=== PATIENT | female | born 1945 | race Caucasian/White ===

== ENCOUNTER 2019-10-29 18:24 | Inpatient (IN) ==
[2019-10-29 20:50] LABS: Basophils % 0.2 % (0.0-0.8); Eosinophils % 0.1 % (0.00-10.9); Hematocrit 42.4 VOL% (35.7-47.0); Hemoglobin 13.4 GM/DL (12.0-16.0); Immature Granulocytes % 0.5 %; Immature Granulocytes Absolute 0.06 #; Lymphocytes # 1.1 10*3/uL (1.4-4.0); Lymphocytes % 8.3 % (21.3-54.2); Mean Corpuscular HGB Conc 31.6 GM/DL (32-36); Mean Platelet Volume 9.7 FL (9.6-12.0); Monocytes % 4.4 % (1.7-12.7); Neutrophils % 86.5 % (38.7-73.9); Platelet Count 227 T/CUMM (130-400); Red Blood Count 4.82 MC/CUMM (3.8-5.5); Red Cell Distribution Width 13.2 % (9.3-17.3); White Blood Count 12.6 T/CUMM (4-12)
[2019-10-29 21:04] LABS: Calcium 9.4 MG/DL (8.5-10.1); Osmolality,Calculated 279.5 MOS/KG (273-304); PT Patient Result 10.8 SECS (9.8-11.9); Partial Thromboplastin Time 32.6 SECS (23.9-33.8)
[2019-10-29] MEDS ORDERED: MORPHINE 4 MG/1 ML VIAL IV PRN (21:29)
[2019-10-29] MEDS: NITROGLYCERIN SL 0.4 MG TABLET SL PRN ×3 (23:02→23:12)
[2019-10-29] MEDS: ONDANSETRON 4 MG/2 ML VIAL IV PRN (23:03)
[2019-10-29] MEDS ORDERED: DEXTROSE 50% 25 GM/50 ML VIAL IV PRN (23:28)
[2019-10-29] MEDS ORDERED: ACETAMINOPHEN 325 MG TABLET PO PRN (23:28)
[2019-10-29] MEDS ORDERED: NICOTINE 21 MG/24 HR PATCH TRANSDERM PRN (23:28)
[2019-10-29] MEDS ORDERED: GLUCAGON 1 MG VIAL IM PRN (23:28)
[2019-10-29] MEDS ORDERED: guaiFENesin/DM ER 600-30 MG TABLET PO PRN (23:28)
[2019-10-29] MEDS ORDERED: hydrALAZINE 20 MG/1 ML VIAL IV PRN (23:28)
[2019-10-29] MEDS ORDERED: DOCUSATE SODIUM 100 MG CAPSULE PO PRN (23:28)
[2019-10-29] MEDS ORDERED: ALBUTEROL 2.5 MG/3 ML NEB RESP TX PRN (23:28)
[2019-10-29] MEDS ORDERED: LEVOFLOXACIN INJ 750 MG in PREMIX 1 EACH IV SCH (23:30)
[2019-10-29] MEDS ORDERED: ASPIRIN CHEW 81 MG TABLET PO ONE (23:49)
[2019-10-29] MEDS ORDERED: POTASSIUM CHLORIDE 20 MEQ TABLET PO ONE (23:50)
[2019-10-29] MEDS ORDERED: NITROGLYCERIN DRIP 50 MG/250 ML BOTTLE IV PRN (23:50)
[2019-10-30] MEDS ORDERED: CLOPIDOGREL 300 MG TABLET PO ONE (00:09)
[2019-10-30] MEDS: ENOXAPARIN 100 MG/ML SYRINGE SUBCUT SCH ×3 (00:30→23:45)
[2019-10-30] MEDS: carvediloL 6.25 MG TABLET PO SCH ×4 (00:30→17:17)
[2019-10-30] MEDS: ATORVASTATIN 40 MG TABLET PO SCH ×2 (02:01→20:12)
[2019-10-30] MEDS: MORPHINE 4 MG/1 ML VIAL IV PRN ×3 (03:20→20:18)
[2019-10-30] MEDS: ONDANSETRON 4 MG/2 ML VIAL IV PRN (04:00)
[2019-10-30 04:37] LABS: Basophils % 0.2 % (0.0-0.8); Hematocrit 40.9 VOL% (35.7-47.0); Hemoglobin 13.2 GM/DL (12.0-16.0); Immature Granulocytes % 0.6 %; Immature Granulocytes Absolute 0.08 #; Lymphocytes # 1.1 10*3/uL (1.4-4.0); Lymphocytes % 7.7 % (21.3-54.2); Mean Corpuscular HGB Conc 32.3 GM/DL (32-36); Mean Corpuscular Volume 85.7 FL (87-102); Mean Platelet Volume 10.5 FL (9.6-12.0); Monocytes % 5.2 % (1.7-12.7); Neutrophils % 86.3 % (38.7-73.9); Platelet Count 239 T/CUMM (130-400); Red Blood Count 4.77 MC/CUMM (3.8-5.5); White Blood Count 14.5 T/CUMM (4-12)
[2019-10-30 04:47] LABS: Calcium 9.3 MG/DL (8.5-10.1); Osmolality,Calculated 276.7 MOS/KG (273-304); Risk Ratio 4.22; VLDL CHOLESTEROL 21.8 MG/DL
[2019-10-30 05:47] LABS: CKMB % 14.2 %
[2019-10-30] MEDS: INSULIN LISPRO 100 UNIT/ML SUBCUT SCH ×4 (07:40→22:15)
[2019-10-30] MEDS ORDERED: AZITHROMYCIN INJ 500 MG in SODIUM CHLORIDE 0.9% 250 ML IV ONE (08:44)
[2019-10-30] MEDS ORDERED: AZITHROMYCIN 250 MG TABLET PO ONE (09:00)
[2019-10-30] MEDS ORDERED: ASPIRIN CHEW 81 MG TABLET PO SCH (09:00)
[2019-10-30] MEDS ORDERED: amLODIPine 5 MG TABLET PO SCH (09:00)
[2019-10-30] MEDS ORDERED: ASPIRIN EC 325 MG TABLET PO SCH (09:00)
[2019-10-30] MEDS: PANTOPRAZOLE 40 MG TABLET PO SCH (09:11)
[2019-10-30] MEDS: FUROSEMIDE 20 MG TABLET PO SCH (09:11)
[2019-10-30] MEDS: cefTRIAXone 1,000 MG in SYRINGE 1 EACH IV SCH (10:50)
[2019-10-30] MEDS: HYDROXYCHLOROQUINE 200 MG TABLET PO SCH ×2 (10:51→20:12)
[2019-10-30] MEDS: SERTRALINE 25 MG TABLET PO SCH (20:12)
[2019-10-30] MEDS: NITROGLYCERIN 2% OINT 1 INCH/GM PACK TOP SCH (22:16)
[2019-10-31] MEDS ORDERED: DOBUTamine 500 MG/250 ML PREMIX IV ONE (00:31)
[2019-10-31] MEDS ORDERED: DOBUTamine 500 MG/250 ML PREMIX IV PRN ×2 (00:32→03:02)
[2019-10-31] MEDS ORDERED: methylPREDNISolone SOD SUC 40 MG/1 ML VIAL IV ONE ×2 (00:32→01:30)
[2019-10-31] MEDS ORDERED: SODIUM CHLORIDE 0.9% 500 ML IV ONE ×2 (00:33→09:49)
[2019-10-31 00:38] LABS: ABG Base Excess -1.4 MMOL/L (-2.5-2.5); ABG HCO3 23.2 MMOL/L (20-26); ABG PH 7.358 (7.35-7.45); ABG PO2 80.4 MM HG (80-95); ABG TCO2 21.6 MMOL/L (23-27); Allen Test Positive
[2019-10-31] MEDS ORDERED: PHENYLEPHRINE DRIP 40 MG/250 ML PREMIX IV PRN (00:39)
[2019-10-31] MEDS ORDERED: TICAGRELOR 90 MG TABLET PO ONE (01:00)
[2019-10-31] MEDS: MORPHINE 4 MG/1 ML VIAL IV PRN ×4 (01:00→22:20)
[2019-10-31] MEDS ORDERED: SODIUM CHLORIDE 0.9% 1,000 ML IV SCH ×2 (01:00→10:00)
[2019-10-31] MEDS ORDERED: methylPREDNISolone SOD SUC 125 MG/2 ML VIAL ONE (01:13)
[2019-10-31] MEDS: NITROGLYCERIN SL 0.4 MG TABLET SL PRN (01:25)
[2019-10-31] MEDS: ASPIRIN CHEW 81 MG TABLET PO SCH ×2 (01:52→08:29)
[2019-10-31] MEDS: carvediloL 6.25 MG TABLET PO SCH ×3 (01:56→06:18)
[2019-10-31] MEDS: NITROGLYCERIN 2% OINT 1 INCH/GM PACK TOP SCH ×4 (03:01→21:25)
[2019-10-31 05:47] LABS: Basophils % 0.1 % (0.0-0.8); Hematocrit 34.8 VOL% (35.7-47.0); Hemoglobin 11.4 GM/DL (12.0-16.0); Immature Granulocytes % 0.6 %; Immature Granulocytes Absolute 0.09 #; Lymphocytes # 0.6 10*3/uL (1.4-4.0); Lymphocytes % 4.2 % (21.3-54.2); Mean Corpuscular HGB Conc 32.8 GM/DL (32-36); Mean Corpuscular Volume 84.9 FL (87-102); Mean Platelet Volume 10.8 FL (9.6-12.0); Monocytes % 4.8 % (1.7-12.7); Neutrophils % 90.3 % (38.7-73.9); Platelet Count 203 T/CUMM (130-400); Red Cell Distribution Width 13.3 % (9.3-17.3); White Blood Count 14.3 T/CUMM (4-12)
[2019-10-31 05:49] LABS: ABG Base Excess -4.4 MMOL/L (-2.5-2.5); ABG HCO3 20.8 MMOL/L (20-26); ABG PCO2 40.9 MM HG (35-48); ABG PH 7.326 (7.35-7.45); ABG PO2 80.8 MM HG (80-95); ABG TCO2 19.3 MMOL/L (23-27)
[2019-10-31 06:15] LABS: Apearance,Urine CLOUDY (Clear); Bacteria,Urine Occasional /HPF (Few); Bilirubin,Urine Negative (Negative); Blood, Urine Moderate mg/dL (Negative); Glucose,Urine (UA) Negative (Negative); Ketones,Urine Negative (Negative); Mucus,Urine Occasional /LPF (Occasional); Nitrite,Urine Negative (Negative); Protein,Urine 100 MG/DL; RBC,Urine 152 /HPF (0-4); Squamous Epithelial Cell,Urine Occasional /HPF (0-10); Urine Color Amber (Yellow); Urine Specific Gravity 1.023 (1.001-1.035); Urine Urobilinogen < 2.0 EU/DL (0.2-1.0); WBC,Urine 6 /HPF (0-6)
[2019-10-31 06:23] LABS: Calcium 9.1 MG/DL (8.5-10.1); Osmolality,Calculated 268.8 MOS/KG (273-304)
[2019-10-31 06:26] LABS: Troponin I 56.1 NG/ML (0.00-0.045)
[2019-10-31 06:45] LABS: Lymphocytes 5 % (20-55); Segmented Neutrophils 87 % (50-85); Total Cells Counted 100
[2019-10-31 06:47] LABS: Hypochromasia Slight; Platelet Estimate Normal; Polychromasia Few
[2019-10-31] MEDS: INSULIN LISPRO 100 UNIT/ML SUBCUT SCH ×4 (08:27→21:21)
[2019-10-31] MEDS: TICAGRELOR 90 MG TABLET PO SCH ×2 (08:29→21:20)
[2019-10-31] MEDS: FUROSEMIDE 20 MG TABLET PO SCH (08:29)
[2019-10-31] MEDS: HYDROXYCHLOROQUINE 200 MG TABLET PO SCH ×2 (08:30→21:20)
[2019-10-31] MEDS: PANTOPRAZOLE 40 MG TABLET PO SCH (08:30)
[2019-10-31] MEDS ORDERED: AZITHROMYCIN 250 MG TABLET PO SCH (09:00)
[2019-10-31] MEDS ORDERED: AZITHROMYCIN INJ 250 MG in SODIUM CHLORIDE 0.9% 250 ML IV SCH (09:00)
[2019-10-31] MEDS: cefTRIAXone 1,000 MG in SYRINGE 1 EACH IV SCH (09:33)
[2019-10-31] MEDS ORDERED: SODIUM CHLORIDE 0.9% 500 ML IV SCH (10:00)
[2019-10-31] MEDS: ENOXAPARIN 100 MG/ML SYRINGE SUBCUT SCH (11:54)
[2019-10-31] MEDS ORDERED: SODIUM CHLORIDE 0.9% 250 ML IV ONE (19:52)
[2019-10-31] MEDS: SERTRALINE 25 MG TABLET PO SCH (21:20)
[2019-10-31] MEDS: ATORVASTATIN 40 MG TABLET PO SCH (21:20)
[2019-11-01] MEDS ORDERED: ETOMIDATE 20 MG/10 ML VIAL IV ONE (00:27)
[2019-11-01] MEDS ORDERED: VECURONIUM 10 MG VIAL IV ONE (00:27)
[2019-11-01] MEDS ORDERED: AMIODARONE 150 MG/3 ML VIAL ONE (01:06)
[2019-11-01] MEDS ORDERED: AMIODARONE 450 MG/9 ML VIAL IV ONE (01:06)
[2019-11-01] MEDS ORDERED: ATROPINE 1 MG/10 ML SYRINGE ONE (01:06)
[2019-11-01] MEDS ORDERED: SODIUM BICARBONATE 50 MEQ/50 ML SYRINGE IV ONE (01:11)
[2019-11-01] MEDS ORDERED: EPINEPHrine 1 MG/10 ML SYRINGE ONE ×2 (01:11→02:58)
[2019-11-01] MEDS ORDERED: AMIODARONE INJ 150 MG in DEXTROSE 5% 100 ML IV ONE (01:32)
[2019-11-01] MEDS ORDERED: AMIODARONE INJ 450 MG in DEXTROSE 5% 241 ML IV SCH (01:32)
[2019-11-01 01:36] VITALS: BP 80/47
[2019-11-01 02:06] LABS: Basophils % 0.2 % (0.0-0.8); Hematocrit 36.4 VOL% (35.7-47.0); Hemoglobin 11.1 GM/DL (12.0-16.0); Immature Granulocytes % 4.1 %; Immature Granulocytes Absolute 0.83 #; Lymphocytes # 2.6 10*3/uL (1.4-4.0); Lymphocytes % 12.5 % (21.3-54.2); Mean Corpuscular HGB Conc 30.5 GM/DL (32-36); Mean Corpuscular Volume 91.9 FL (87-102); Mean Platelet Volume 10.4 FL (9.6-12.0); Monocytes % 7.6 % (1.7-12.7); NRBC # 0.05 10*3/uL; Neutrophils % 75.6 % (38.7-73.9); Platelet Count 234 T/CUMM (130-400); Red Blood Count 3.96 MC/CUMM (3.8-5.5); Red Cell Distribution Width 13.5 % (9.3-17.3); White Blood Count 20.5 T/CUMM (4-12)
[2019-11-01 02:18] LABS: INR 1.7; PT Patient Result 17.5 SECS (9.8-11.9); Partial Thromboplastin Time 40.6 SECS (23.9-33.8)
[2019-11-01 02:32] LABS: ABG Base Excess -20.2 MMOL/L (-2.5-2.5); ABG Oxygen Saturation 97.6 % (95-100); ABG PCO2 31.9 MM HG (35-48); ABG TCO2 8.8 MMOL/L (23-27)
[2019-11-01 02:33] LABS: ABG PH 7.077 (7.35-7.45)
[2019-11-01] MEDS ORDERED: SODIUM BICARBONATE 50 MEQ/50 ML VIAL IV ONE ×2 (02:34→02:50)
[2019-11-01] MEDS ORDERED: LIDOCAINE 1% 20 ML VIAL ONE (02:47)
[2019-11-01] MEDS ORDERED: HEPARIN/NACL 0.9% 2 UNITS/ML 1,500 ML IV ONE (02:47)
[2019-11-01] MEDS ORDERED: ATROPINE 1 MG/10 ML SYRINGE IV ONE ×2 (02:55→02:56)
[2019-11-01] MEDS ORDERED: CALCIUM CHLORIDE 1,000 MG/10 ML SYRINGE IV ONE (02:58)
[2019-11-01 03:07] LABS: Albumin 2.6 G/DL (3.4-5.0); Bilirubin,Total 4.69 MG/DL (0.2-1.0); Calcium 7.8 MG/DL (8.5-10.1); Total Protein 4.9 G/DL (6.4-8.3)
[2019-11-01 03:16] LABS: Lymphocytes 11 % (20-55); Segmented Neutrophils 84 % (50-85); Total Cells Counted 100
[2019-11-01 03:17] LABS: Platelet Estimate Normal; Polychromasia Few
[2019-11-01] MEDS: NITROGLYCERIN 2% OINT 1 INCH/GM PACK TOP SCH (06:04)
[2019-11-01] MEDS ORDERED: ENOXAPARIN 100 MG/ML SYRINGE SUBCUT SCH (12:00)
== END 2019-11-01 04:15 | disposition expired | DRG 250 ==
LOC: SUPCPDRO 19:44 → N.TELEN 19:44 → N.ICU 23:20 → N.2W 10-31 18:37 → N.ICU 11-01 01:43
PROVIDERS: ADMIT Internal Medicine; ATTEND Internal Medicine